=== PATIENT | male | born 1960 | race Caucasian/White ===

== ENCOUNTER 2017-09-05 12:21 | Emergency (ER) | payer MEDICARE, OTHER ==
[~2017-09-05] VITALS: Ht 167.6 cm; Wt 84.1 kg
[~2017-09-05 12:21] MED LIST: AMLO-511 PO; ASPI-1198 PO; ATOR20TA86 PO; CARV6.2534 PO; FURO20TA4 PO; INSLAN SQ
[2017-09-05 12:32] LABS: GLUCOSE,POINT OF CARE 116 MG/DL (70-110)
[2017-09-05] MEDS ORDERED: LINA5TAB PO (12:35)
[2017-09-05] MEDS ORDERED: NIFE10 PO (12:35)
[2017-09-05 13:29] LABS: INFLUENZA TYPE A NEGATIVE FOR TYPE A (NEGATIVE); INFLUENZA TYPE B NEGATIVE FOR TYPE B (NEGATIVE)
[2017-09-05 14:19] LABS: ALBUMIN 3.8 g/dL (3.4-5.0); BILIRUBIN,TOTAL 0.5 mg/dL (0.1-1.0); CALCIUM, TOTAL 8.8 mg/dL (8.8-10.5); CREATININE 13.84 mg/dL (0.60-1.30); POTASSIUM 5.1 mmol/L (3.5-5.1); TOTAL PROTEIN, SERUM 8.1 g/dL (6.4-8.2)
[2017-09-05] MEDS ORDERED: LEVOFLOXACIN 250 MG TABLET PO ONE (15:00)
[2017-09-05 15:06] VITALS: BP 148/80
== END 2017-09-05 15:08 | disposition home or self-care (01) ==
LOC: EMS 12:23
DX: J18.9 Pneumonia, unspecified organism (principal); N19 Unspecified kidney failure; Z99.2 Dependence on renal dialysis; E11.9 Type 2 diabetes mellitus without complications; I10 Essential (primary) hypertension; E78.00 Pure hypercholesterolemia, unspecified
CPT/HCPCS: 71046; 82962; 87804; 93005; 99285

== ENCOUNTER 2018-02-18 18:17 | Emergency (ER) | payer MEDICARE, OTHER ==
[~2018-02-18] VITALS: Ht 154.9 cm; Wt 65.1 kg
[~2018-02-18 18:17] MED LIST changes: -AMLO-511 PO; -ASPI-1198 PO; -INSLAN SQ; +LINA5TAB PO; +NIFE10 PO
[2018-02-18 18:32] VITALS: BP 146/65
== END 2018-02-18 18:35 | disposition left against medical advice (07) ==
LOC: EMS 18:18
DX: Z53.21 Procedure and treatment not carried out due to patient leaving prior to being seen by health care provider (principal)

== ENCOUNTER 2018-09-02 19:01 | Inpatient (IN) | payer MEDICARE, OTHER ==
[~2018-09-02] VITALS: Ht 154.9 cm; Wt 74.4 kg
[2018-09-02 19:19] LABS: GLUCOSE,POINT OF CARE 104 MG/DL (70-110)
[2018-09-02] MEDS ORDERED: ATOR40TA28 PO (20:15)
[2018-09-02] MEDS ORDERED: CloNIDine HCL 0.2 MG TABLET PO ONE (20:15)
[2018-09-02] MEDS ORDERED: FURO40 PO (20:15)
[2018-09-02 20:30] LABS: BASOPHILS % (AUTO) 0.6 % (0.0-2.0); EOSINOPHILS % (AUTO) 2.6 % (1.0-6.0); HEMATOCRIT 29.9 % (41-53); LYMPHOCYTES # (AUTO) 1.1 K/uL (1.0-4.8); LYMPHOCYTES % (AUTO) 18.9 % (22.0-44.0); MEAN CORPUSCULAR HEMOGLOBIN 34.5 pg (26.0-34.0); MEAN CORPUSCULAR HGB CONC 33.6 G/dL (31.0-37.0); MEAN CORPUSCULAR VOLUME 103 fL (80-100); MONOCYTES # (AUTO) 0.7 K/uL (0.1-1.0); MONOCYTES % (AUTO) 12.2 % (2.0-9.0); NEUTROPHILS # (AUTO) 3.9 K/uL (1.8-7.7); NEUTROPHILS % (AUTO) 65.7 % (40.0-70.0); PLATELET COUNT (AUTO) 135 K/uL (150-450); RED BLOOD CELL COUNT(AUTO) 2.91 MIL/uL (4.50-5.90); RED CELL DISTRIBUTION WIDTH 15.3 % (11.5-14.5)
[2018-09-02 20:36] LABS: INR 1.2 (0.9-1.1); PROTHROMBIN TIME 12.1 SEC (9.4-11.6)
[2018-09-02 21:05] LABS: ALBUMIN 3.9 g/dL (3.4-5.0); BILIRUBIN,TOTAL 0.5 mg/dL (0.1-1.0); CALCIUM, TOTAL 8.6 mg/dL (8.8-10.5); CREATININE 10.68 mg/dL (0.60-1.30); POTASSIUM 7.2 mmol/L (3.5-5.1); TOTAL PROTEIN, SERUM 7.9 g/dL (6.4-8.2)
[2018-09-02] MEDS ORDERED: ALBUTEROL SULFATE 5 MG/ML 20 ML NEB SOLN [BULK] NEB ONE (21:11)
[2018-09-02] MEDS ORDERED: CALCIUM GLUCONATE 100 MG/ML 10 ML IVP ONE (21:15)
[2018-09-02] MEDS ORDERED: DEXTROSE 50%-WATER 25 GM/50 ML SYRINGE IVP ONE (21:15)
[2018-09-02] MEDS ORDERED: INSULIN REGULAR, HUMAN 100 UNITS/ML SQ ONE (21:15)
[2018-09-02] MEDS ORDERED: SODIUM POLYSTYRENE SULFONATE 15 GM/60 ML SUSPENSION BOTTLE PO ONE (21:15)
[2018-09-02] MEDS ORDERED: IPRATROPIUM BROMIDE 0.5 MG/2.5 ML NEB SOLUTION NEB ONE (21:15)
[2018-09-02] MEDS ORDERED: 0.9% SODIUM CHLORIDE 10 ML SYRINGE IVP PRN (21:45)
[2018-09-02] MEDS ORDERED: ACETAMINOPHEN 325 MG TABLET PO PRN (21:45)
[2018-09-02 22:18] VITALS: BP 140/60
[2018-09-03] VITALS (8 sets, daily range): BP systolic 135–191; BP diastolic 63–79
[2018-09-03] MEDS ORDERED: ONDANSETRON HCL 4 MG/2 ML VIAL IVP PRN (02:45)
[2018-09-03 05:19] LABS: GLUCOMETER DEV NAME(LOC) 5S.1; GLUCOSE,POINT OF CARE 78 MG/DL (70-110)
[2018-09-03 05:19] LABS: GLUCOMETER DEV NAME(LOC) 5S.1; GLUCOSE,POINT OF CARE 129 MG/DL (70-110)
[2018-09-03 06:14] LABS: BASOPHILS % (AUTO) 0.8 % (0.0-2.0); EOSINOPHILS % (AUTO) 2.4 % (1.0-6.0); HEMATOCRIT 25.7 % (41-53); LYMPHOCYTES # (AUTO) 0.9 K/uL (1.0-4.8); LYMPHOCYTES % (AUTO) 18.8 % (22.0-44.0); MEAN CORPUSCULAR HEMOGLOBIN 35.3 pg (26.0-34.0); MEAN CORPUSCULAR HGB CONC 35.2 G/dL (31.0-37.0); MEAN CORPUSCULAR VOLUME 101 fL (80-100); MONOCYTES # (AUTO) 0.6 K/uL (0.1-1.0); MONOCYTES % (AUTO) 12.4 % (2.0-9.0); NEUTROPHILS % (AUTO) 65.6 % (40.0-70.0); PLATELET COUNT (AUTO) 112 K/uL (150-450); RED BLOOD CELL COUNT(AUTO) 2.56 MIL/uL (4.50-5.90); RED CELL DISTRIBUTION WIDTH 15.6 % (11.5-14.5)
[2018-09-03 06:41] LABS: ALBUMIN 3.3 g/dL (3.4-5.0); BILIRUBIN,TOTAL 0.4 mg/dL (0.1-1.0); CALCIUM, TOTAL 8.3 mg/dL (8.8-10.5); CREATININE 5.6 mg/dL (0.60-1.30); POTASSIUM 4.7 mmol/L (3.5-5.1); TOTAL PROTEIN, SERUM 6.9 g/dL (6.4-8.2)
[2018-09-03 07:44] LABS: AMPHET/METH SCREEN,URINE NEGATIVE (NEGATIVE); BARBITURATE SCREEN, URINE NEGATIVE (NEGATIVE); BENZODIAZEPINES SCREEN,URINE NEGATIVE (NEGATIVE); CANNABINOID SCREEN,URINE NEGATIVE (NEGATIVE); COCAINE SCREEN,URINE NEGATIVE (NEGATIVE); METHADONE SCREEN, URINE NEGATIVE (NEGATIVE); OPIATE SCREEN,URINE NEGATIVE (NEGATIVE); PHENCYCLIDINE SCREEN,URINE NEGATIVE (NEGATIVE)
[2018-09-03] MEDS: CloNIDine HCL 0.1 MG TABLET PO PRN (08:58)
[2018-09-03] MEDS ORDERED: BISACODYL 10 MG RECTAL RECTAL SUPPOSITORY PR PRN (09:30)
[2018-09-03] MEDS ORDERED: ALBUTEROL SULFATE 2.5 MG/0.5 ML NEB SOLUTION NEB PRN (09:30)
[2018-09-03] MEDS ORDERED: ACETAMINOPHEN 325 MG TABLET PO PRN (09:30)
[2018-09-03] MEDS ORDERED: DEXTROSE 50%-WATER 25 GM/50 ML SYRINGE IVP PRN (09:30)
[2018-09-03] MEDS ORDERED: OxyCODONE HCL/ACETAMINOPHEN 5-325 MG TABLET PO PRN (09:30)
[2018-09-03] MEDS: AmLODIPine BESYLATE 10 MG TABLET PO SCH (11:06)
[2018-09-03] MEDS: ASPIRIN 81 MG CHEWABLE TABLET PO SCH (11:06)
[2018-09-03] MEDS: INSULIN LISPRO 100 UNITS/ML SQ PRN ×3 (11:54→20:31)
[2018-09-03 19:39] LABS: GLUCOMETER DEV NAME(LOC) 5S.1; GLUCOSE,POINT OF CARE 125 MG/DL (70-110)
[2018-09-03 19:39] LABS: GLUCOMETER DEV NAME(LOC) 5S.1; GLUCOSE,POINT OF CARE 96 MG/DL (70-110)
[2018-09-03] MEDS: HEPARIN SODIUM,PORCINE 5,000 UNITS/ML VIAL SQ SCH (20:10)
[2018-09-03] MEDS: DOCUSATE SODIUM 100 MG CAPSULE PO SCH (20:10)
[2018-09-03] MEDS: CARVEDILOL 12.5 MG TABLET PO SCH (20:10)
[2018-09-03] MEDS: ATORVASTATIN CALCIUM 40 MG TABLET PO SCH (20:10)
[2018-09-04 01:14] LABS: GLUCOMETER DEV NAME(LOC) 5S.2; GLUCOSE,POINT OF CARE 137 MG/DL (70-110)
[2018-09-04 01:14] LABS: GLUCOMETER DEV NAME(LOC) 5S.2; GLUCOSE,POINT OF CARE 39 MG/DL (70-110)
[2018-09-04 01:14] LABS: GLUCOMETER DEV NAME(LOC) 5S.2; GLUCOSE,POINT OF CARE 153 MG/DL (70-110)
[2018-09-04 05:18] VITALS: BP 149/66
[2018-09-04 06:36] LABS: BASOPHILS % (AUTO) 0.6 % (0.0-2.0); EOSINOPHILS % (AUTO) 1.2 % (1.0-6.0); HEMATOCRIT 28.9 % (41-53); HEMOGLOBIN 9.8 g/dL (13.5-17.5); LYMPHOCYTES # (AUTO) 1.3 K/uL (1.0-4.8); LYMPHOCYTES % (AUTO) 25.5 % (22.0-44.0); MEAN CORPUSCULAR HEMOGLOBIN 34.8 pg (26.0-34.0); MEAN CORPUSCULAR HGB CONC 34.1 G/dL (31.0-37.0); MEAN CORPUSCULAR VOLUME 102 fL (80-100); MONOCYTES # (AUTO) 0.7 K/uL (0.1-1.0); MONOCYTES % (AUTO) 12.6 % (2.0-9.0); NEUTROPHILS # (AUTO) 3.1 K/uL (1.8-7.7); NEUTROPHILS % (AUTO) 60.1 % (40.0-70.0); PLATELET COUNT (AUTO) 107 K/uL (150-450); RED BLOOD CELL COUNT(AUTO) 2.83 MIL/uL (4.50-5.90); RED CELL DISTRIBUTION WIDTH 15.3 % (11.5-14.5)
[2018-09-04 06:58] LABS: CALCIUM, TOTAL 8.3 mg/dL (8.8-10.5); CREATININE 7.88 mg/dL (0.60-1.30); POTASSIUM 5.7 mmol/L (3.5-5.1)
[2018-09-04 07:11] VITALS: BP 171/65
[2018-09-04] MEDS: PANTOPRAZOLE SODIUM 40 MG DR TABLET PO SCH (08:22)
[2018-09-04] MEDS: DOCUSATE SODIUM 100 MG CAPSULE PO SCH ×2 (08:22→20:33)
[2018-09-04] MEDS: ASPIRIN 81 MG CHEWABLE TABLET PO SCH (08:23)
[2018-09-04] MEDS: HEPARIN SODIUM,PORCINE 5,000 UNITS/ML VIAL SQ SCH ×2 (08:23→20:33)
[2018-09-04] MEDS: CARVEDILOL 12.5 MG TABLET PO SCH ×2 (10:05→20:33)
[2018-09-04] MEDS: AmLODIPine BESYLATE 10 MG TABLET PO SCH (10:05)
[2018-09-04 11:24] VITALS: BP 161/90
[2018-09-04] MEDS ORDERED: SODIUM CHLORIDE 0.9% 2,000 ML IV ONE (12:24)
[2018-09-04 14:54] VITALS: BP 181/84
[2018-09-04] MEDS: CloNIDine HCL 0.1 MG TABLET PO PRN (18:32)
[2018-09-04 19:24] VITALS: BP 156/73
[2018-09-04 19:49] LABS: GLUCOMETER DEV NAME(LOC) 5S.2; GLUCOSE,POINT OF CARE 125 MG/DL (70-110)
[2018-09-04 19:49] LABS: GLUCOMETER DEV NAME(LOC) 5S.1; GLUCOSE,POINT OF CARE 105 MG/DL (70-110)
[2018-09-04 19:49] LABS: GLUCOMETER DEV NAME(LOC) 5S.1; GLUCOSE,POINT OF CARE 122 MG/DL (70-110)
[2018-09-04] MEDS: ATORVASTATIN CALCIUM 40 MG TABLET PO SCH (20:33)
[2018-09-04] MEDS: INSULIN LISPRO 100 UNITS/ML SQ PRN (20:39)
[2018-09-04 23:45] VITALS: BP 161/65
[2018-09-05 00:14] LABS: GLUCOMETER DEV NAME(LOC) 5S.1; GLUCOSE,POINT OF CARE 160 MG/DL (70-110)
[2018-09-05 04:07] VITALS: BP 153/63
[2018-09-05 06:22] LABS: BASOPHILS % (AUTO) 0.7 % (0.0-2.0); EOSINOPHILS % (AUTO) 2.1 % (1.0-6.0); HEMATOCRIT 26.9 % (41-53); HEMOGLOBIN 9.2 g/dL (13.5-17.5); LYMPHOCYTES # (AUTO) 1.5 K/uL (1.0-4.8); LYMPHOCYTES % (AUTO) 32.8 % (22.0-44.0); MEAN CORPUSCULAR HEMOGLOBIN 34.4 pg (26.0-34.0); MEAN CORPUSCULAR VOLUME 101 fL (80-100); MONOCYTES # (AUTO) 0.6 K/uL (0.1-1.0); MONOCYTES % (AUTO) 13.9 % (2.0-9.0); NEUTROPHILS # (AUTO) 2.3 K/uL (1.8-7.7); NEUTROPHILS % (AUTO) 50.5 % (40.0-70.0); RED BLOOD CELL COUNT(AUTO) 2.66 MIL/uL (4.50-5.90); RED CELL DISTRIBUTION WIDTH 15.2 % (11.5-14.5)
[2018-09-05 07:05] LABS: CALCIUM, TOTAL 7.9 mg/dL (8.8-10.5); CREATININE 5.62 mg/dL (0.60-1.30); PHOSPHORUS 5.3 mg/dL (2.5-4.9)
[2018-09-05 07:33] LABS: PLATELET COUNT (AUTO) 99 K/uL (150-450)
[2018-09-05 07:51] VITALS: BP 180/77
[2018-09-05] MEDS: AmLODIPine BESYLATE 10 MG TABLET PO SCH (08:24)
[2018-09-05] MEDS: ASPIRIN 81 MG CHEWABLE TABLET PO SCH (08:24)
[2018-09-05] MEDS: DOCUSATE SODIUM 100 MG CAPSULE PO SCH (08:24)
[2018-09-05] MEDS: PANTOPRAZOLE SODIUM 40 MG DR TABLET PO SCH (08:24)
[2018-09-05] MEDS: CARVEDILOL 12.5 MG TABLET PO SCH (08:24)
[2018-09-05] MEDS: HEPARIN SODIUM,PORCINE 5,000 UNITS/ML VIAL SQ SCH (08:24)
[2018-09-05 09:09] LABS: GLUCOMETER DEV NAME(LOC) 5S.1; GLUCOSE,POINT OF CARE 80 MG/DL (70-110)
[2018-09-05] MEDS ORDERED: SODIUM POLYSTYRENE SULFONATE 15 GM/60 ML SUSPENSION BOTTLE PO ONE (09:15)
[2018-09-05 11:18] VITALS: BP 147/66
[2018-09-05 11:55] LABS: GLUCOMETER DEV NAME(LOC) 5S.1; GLUCOSE,POINT OF CARE 72 MG/DL (70-110)
[2018-09-05] MEDS ORDERED: HydrALAZINE HCL 25 MG TABLET PO SCH (16:00)
[2018-09-06] MEDS ORDERED: EPOETIN ALFA 10,000 UNITS/ML VIAL SQ SCH (09:00)
== END 2018-09-05 12:25 | disposition home or self-care (01) | DRG 682 ==
LOC: EMS 19:02 → 5S 21:30
PROVIDERS: ADMIT Internal Medicine; ATTEND Internal Medicine
PROC: 5A1D70Z Performance of Urinary Filtration, Intermittent, Less than 6 Hours Per Day (ICD-10-PCS; principal; 2018-09-02)
PROC: 5A1D70Z Performance of Urinary Filtration, Intermittent, Less than 6 Hours Per Day (ICD-10-PCS; 2018-09-04)
DX: I13.11 Hypertensive heart and chronic kidney disease without heart failure, with stage 5 chronic kidney disease, or end stage renal disease (principal); N18.6 End stage renal disease; E87.5 Hyperkalemia; H54.61 Unqualified visual loss, right eye, normal vision left eye; E78.5 Hyperlipidemia, unspecified; E78.00 Pure hypercholesterolemia, unspecified; D63.1 Anemia in chronic kidney disease; E11.22 Type 2 diabetes mellitus with diabetic chronic kidney disease; E11.21 Type 2 diabetes mellitus with diabetic nephropathy; E11.319 Type 2 diabetes mellitus with unspecified diabetic retinopathy without macular edema; F17.210 Nicotine dependence, cigarettes, uncomplicated; Z79.899 Other long term (current) drug therapy; Z99.2 Dependence on renal dialysis; Z71.6 Tobacco abuse counseling; Z82.49 Family history of ischemic heart disease and other diseases of the circulatory system; Z83.3 Family history of diabetes mellitus
CPT/HCPCS: 80307; 83735; 84100; 84132; 87081; 87340; 93005; 96374; 96375; 99291; G0378; J0610; J1644; J1815; J2405; J7030

== ENCOUNTER 2018-10-05 14:20 | Emergency (ER) | payer MEDICARE, OTHER ==
[~2018-10-05] VITALS: Ht 154.9 cm; Wt 71.8 kg
[~2018-10-05 14:20] MED LIST changes: -ATOR20TA86 PO; +ATOR40TA28 PO; -CARV6.2534 PO; -FURO20TA4 PO; -NIFE10 PO
[2018-10-05] MEDS ORDERED: CARV3 PO (14:28)
[2018-10-05] MEDS ORDERED: FURO40 PO (14:28)
[2018-10-05] MEDS ORDERED: PHOSLOC PO (14:28)
[2018-10-05 14:40] LABS: GLUCOSE,POINT OF CARE 184 MG/DL (70-110)
[2018-10-05] MEDS ORDERED: HYDROCODONE/ACETAMINOPHEN 5-325 MG TABLET PO ONE (16:45)
[2018-10-05] MEDS ORDERED: LIDOCAINE 5% TRANSDERMAL PATCH TD ONE (16:45)
[2018-10-05 18:02] VITALS: BP 143/78
== END 2018-10-05 18:05 | disposition home or self-care (01) ==
LOC: EMS 14:22
DX: M54.6 Pain in thoracic spine (principal); E11.22 Type 2 diabetes mellitus with diabetic chronic kidney disease; I13.11 Hypertensive heart and chronic kidney disease without heart failure, with stage 5 chronic kidney disease, or end stage renal disease; N18.6 End stage renal disease; E78.00 Pure hypercholesterolemia, unspecified; F17.210 Nicotine dependence, cigarettes, uncomplicated; Z79.899 Other long term (current) drug therapy
CPT/HCPCS: 74022

== ENCOUNTER 2018-12-29 14:49 | Emergency (ER) | payer MEDICARE, OTHER ==
[~2018-12-29] VITALS: Ht 154.9 cm; Wt 72.7 kg
[~2018-12-29 14:49] MED LIST changes: +CARV3 PO; +FURO40 PO; +PHOSLOC PO
[2018-12-29 15:16] VITALS: BP 180/84
== END 2018-12-29 16:02 | disposition home or self-care (01) ==
LOC: EMS 14:49
DX: S45.992A Other specified injury of unspecified blood vessel at shoulder and upper arm level, left arm, initial encounter (principal); T82.838A Hemorrhage due to vascular prosthetic devices, implants and grafts, initial encounter; I12.0 Hypertensive chronic kidney disease with stage 5 chronic kidney disease or end stage renal disease; E11.22 Type 2 diabetes mellitus with diabetic chronic kidney disease; N18.6 End stage renal disease; E78.00 Pure hypercholesterolemia, unspecified; F17.210 Nicotine dependence, cigarettes, uncomplicated; Z99.2 Dependence on renal dialysis; Z79.899 Other long term (current) drug therapy; Y84.1 Kidney dialysis as the cause of abnormal reaction of the patient, or of later complication, without mention of misadventure at the time of the procedure; Y93.89 Activity, other specified; Y92.89 Other specified places as the place of occurrence of the external cause; Y99.8 Other external cause status

== ENCOUNTER 2019-02-13 19:28 | Emergency (ER) | payer MEDICARE, OTHER ==
[~2019-02-13] VITALS: Ht 157.5 cm; Wt 70.9 kg
[2019-02-13 20:40] LABS: BASOPHILS % (AUTO) 0.8 % (0.0-2.0); EOSINOPHILS % (AUTO) 1.7 % (1.0-6.0); HEMATOCRIT 32.2 % (41-53); HEMOGLOBIN 10.5 g/dL (13.5-17.5); LYMPHOCYTES # (AUTO) 1.4 K/uL (1.0-4.8); LYMPHOCYTES % (AUTO) 14.5 % (22.0-44.0); MEAN CORPUSCULAR HEMOGLOBIN 32.9 pg (26.0-34.0); MEAN CORPUSCULAR HGB CONC 32.6 G/dL (31.0-37.0); MEAN CORPUSCULAR VOLUME 101 fL (80-100); MONOCYTES # (AUTO) 0.6 K/uL (0.1-1.0); MONOCYTES % (AUTO) 5.8 % (2.0-9.0); NEUTROPHILS # (AUTO) 7.7 K/uL (1.8-7.7); NEUTROPHILS % (AUTO) 77.2 % (40.0-70.0); PLATELET COUNT (AUTO) 152 K/uL (150-450); RED BLOOD CELL COUNT(AUTO) 3.18 MIL/uL (4.50-5.90); RED CELL DISTRIBUTION WIDTH 17.1 % (11.5-14.5)
[2019-02-13 20:52] LABS: INR 1.1 (0.9-1.1); PROTHROMBIN TIME 11.4 SEC (9.4-11.6)
[2019-02-13 20:54] LABS: GLUCOSE,POINT OF CARE 211 MG/DL (70-110)
[2019-02-13 21:02] LABS: CALCIUM, TOTAL 9.2 mg/dL (8.8-10.5); CREATININE 12.33 mg/dL (0.60-1.30); POTASSIUM 5.7 mmol/L (3.5-5.1)
[2019-02-13 21:07] LABS: ALBUMIN 3.7 g/dL (3.4-5.0); BILIRUBIN,TOTAL 0.4 mg/dL (0.1-1.0); TOTAL PROTEIN, SERUM 7.5 g/dL (6.4-8.2)
[2019-02-13] MEDS ORDERED: ALBUTEROL SULFATE 5 MG/ML 20 ML NEB SOLN [BULK] NEB ONE (21:45)
[2019-02-13] MEDS ORDERED: IPRATROPIUM BROMIDE 0.5 MG/2.5 ML NEB SOLUTION NEB ONE (21:45)
[2019-02-13] MEDS ORDERED: 0.9% SODIUM CHLORIDE 15 ML NEB SOLUTION NEB ONE (22:20)
[2019-02-13 22:53] VITALS: BP 146/80
== END 2019-02-13 23:00 | disposition home or self-care (01) ==
LOC: EMS 19:32
DX: T82.838A Hemorrhage due to vascular prosthetic devices, implants and grafts, initial encounter (principal); I13.11 Hypertensive heart and chronic kidney disease without heart failure, with stage 5 chronic kidney disease, or end stage renal disease; E11.22 Type 2 diabetes mellitus with diabetic chronic kidney disease; N18.6 End stage renal disease; E78.00 Pure hypercholesterolemia, unspecified; Z79.899 Other long term (current) drug therapy; Z99.2 Dependence on renal dialysis
CPT/HCPCS: 94640; 94644

== ENCOUNTER 2021-01-14 21:50 | Emergency (ER) | payer MEDICARE, OTHER ==
[~2021-01-14] VITALS: Ht 154.9 cm; Wt 79.1 kg
[~2021-01-14 21:50] MED LIST changes: +ATOR20TA86 PO; -ATOR40TA28 PO; +BUPR-49 PO; +CARV25 PO; -CARV3 PO; +FLUT16H NASAL; +FOLI1TAB35 PO; -FURO40 PO; +FURO80 PO; +LEVE250T55 PO; +LORA10TA7 PO; +NIFE30TA5 PO; +PARO10TA71 PO
[2021-01-14 22:06] VITALS: BP 142/71
[2021-01-14 22:17] LABS: GLUCOSE,POINT OF CARE 174 MG/DL (70-110)
== END 2021-01-14 23:22 | disposition left against medical advice (07) ==
LOC: EMS 21:50
DX: E11.9 Type 2 diabetes mellitus without complications (principal); Z53.21 Procedure and treatment not carried out due to patient leaving prior to being seen by health care provider
CPT/HCPCS: 82962

== ENCOUNTER 2021-01-28 00:57 | Emergency (ER) | payer MEDICARE, OTHER ==
[~2021-01-28] VITALS: Ht 154.9 cm; Wt 79.1 kg
[~2021-01-28 00:57] MED LIST changes: -LINA5TAB PO
[2021-01-28 02:29] VITALS: BP 135/69
[2021-01-28] MEDS ORDERED: OMEP10CA5 PO (14:08)
[2021-01-28] MEDS ORDERED: LEVE500T53 PO (14:08)
[2021-01-28] MEDS ORDERED: LINA5TAB PO (14:08)
== END 2021-01-28 02:41 | disposition home or self-care (01) ==
LOC: EMS 00:58
DX: I12.0 Hypertensive chronic kidney disease with stage 5 chronic kidney disease or end stage renal disease (principal); E78.00 Pure hypercholesterolemia, unspecified
CPT/HCPCS: 82962; 99282

== ENCOUNTER 2021-01-28 13:01 | Emergency (ER) | payer MEDICARE, OTHER ==
[~2021-01-28] VITALS: Ht 154.9 cm; Wt 79.1 kg
[2021-01-28 13:24] LABS: GLUCOSE,POINT OF CARE 211 MG/DL (70-110)
[2021-01-28 13:58] LABS: BASOPHILS % (AUTO) 0.6 % (0.0-2.0); EOSINOPHILS % (AUTO) 2.2 % (1.0-6.0); HEMATOCRIT 35.5 % (41-53); HEMOGLOBIN 11.7 g/dL (13.5-17.5); LYMPHOCYTES # (AUTO) 0.9 K/uL (1.0-4.8); LYMPHOCYTES % (AUTO) 16.1 % (22.0-44.0); MEAN CORPUSCULAR HEMOGLOBIN 33.2 pg (26.0-34.0); MEAN CORPUSCULAR HGB CONC 32.9 G/dL (31.0-37.0); MEAN CORPUSCULAR VOLUME 101 fL (80-100); MONOCYTES # (AUTO) 0.5 K/uL (0.1-1.0); MONOCYTES % (AUTO) 8.6 % (2.0-9.0); NEUTROPHILS # (AUTO) 3.9 K/uL (1.8-7.7); NEUTROPHILS % (AUTO) 72.5 % (40.0-70.0); PLATELET COUNT (AUTO) 192 K/uL (150-450); RED BLOOD CELL COUNT(AUTO) 3.52 MIL/uL (4.50-5.90); RED CELL DISTRIBUTION WIDTH 15.6 % (11.5-14.5)
[2021-01-28 14:04] LABS: CALCIUM, TOTAL 8.6 mg/dL (8.8-10.5); CREATININE 6.76 mg/dL (0.60-1.30); POTASSIUM 4.7 mmol/L (3.5-5.1)
[2021-01-28] MEDS ORDERED: OMEP10CA5 PO (14:08)
[2021-01-28] MEDS ORDERED: LINA5TAB PO (14:08)
[2021-01-28] MEDS ORDERED: LEVE500T53 PO (14:08)
[2021-01-28 14:10] LABS: ALBUMIN 4.1 g/dL (3.4-5.0); BILIRUBIN,TOTAL 0.4 mg/dL (0.1-1.0); TOTAL PROTEIN, SERUM 8.2 g/dL (6.4-8.2)
[2021-01-28] MEDS ORDERED: ONDANSETRON HCL 4 MG TABLET PO ONE (14:15)
[2021-01-28] MEDS ORDERED: LORazepam 1 MG TABLET PO ONE (14:15)
[2021-01-28] MEDS ORDERED: MECLIZINE HCL 25 MG TABLET PO ONE (14:45)
[2021-01-28 16:04] VITALS: BP 156/81
== END 2021-01-28 16:06 | disposition home or self-care (01) ==
LOC: EMS 13:05
DX: I12.9 Hypertensive chronic kidney disease with stage 1 through stage 4 chronic kidney disease, or unspecified chronic kidney disease (principal); E11.9 Type 2 diabetes mellitus without complications; Z79.899 Other long term (current) drug therapy
CPT/HCPCS: 36415; 70450; 80053; 82962; 84484; 85025; 85379; 93005; 99285; Q0162; 82948

== ENCOUNTER 2021-02-06 11:55 | Emergency (ER) | payer MEDICARE, OTHER ==
[~2021-02-06] VITALS: Ht 154.9 cm; Wt 74.5 kg
[~2021-02-06 11:55] MED LIST changes: -LEVE250T55 PO; +LEVE500T53 PO; +LINA5TAB PO; +OMEP10CA5 PO
[2021-02-06 12:13] VITALS: BP 165/84
[2021-02-06 14:03] LABS: GLUCOSE,POINT OF CARE 278 MG/DL (70-110)
== END 2021-02-06 12:58 | disposition home or self-care (01) ==
LOC: EMS 12:05
DX: R42 Dizziness and giddiness (principal); E11.9 Type 2 diabetes mellitus without complications; I11.9 Hypertensive heart disease without heart failure; E78.00 Pure hypercholesterolemia, unspecified; Z76.0 Encounter for issue of repeat prescription; Z87.891 Personal history of nicotine dependence; Z79.899 Other long term (current) drug therapy
CPT/HCPCS: 82962; 99282

== ENCOUNTER 2021-05-12 09:02 | Emergency (ER) | payer MEDICARE, OTHER ==
[~2021-05-12] VITALS: Ht 154.9 cm; Wt 84.1 kg
[~2021-05-12 09:02] MED LIST changes: +LEVE500T20 PO; -LEVE500T53 PO
[2021-05-12] MEDS ORDERED: AMLO-257 PO (09:10)
[2021-05-12] MEDS ORDERED: ATOR40TA28 PO (09:10)
[2021-05-12 09:35] VITALS: BP 156/72
== END 2021-05-12 10:07 | disposition home or self-care (01) ==
LOC: EMS 09:02
DX: G47.00 Insomnia, unspecified (principal); I13.11 Hypertensive heart and chronic kidney disease without heart failure, with stage 5 chronic kidney disease, or end stage renal disease; E11.22 Type 2 diabetes mellitus with diabetic chronic kidney disease; N18.6 End stage renal disease; Z99.2 Dependence on renal dialysis; Z79.899 Other long term (current) drug therapy
CPT/HCPCS: 82962; 99283